=== PATIENT | male | born 1980 | race Caucasian/White ===

== ENCOUNTER 2017-07-20 15:33 | Emergency (ER) | payer OTHER ==
[~2017-07-20] VITALS: Ht 167.6 cm; Wt 65.0 kg
[~2017-07-20 15:33] MED LIST: DARV PO; SULF1TAB47 PO; Z.0.NO CURRENT MEDS
[2017-07-20 15:39] VITALS: BP 143/77; PULSE 77; RESP 16; TEMP 98.7; O2SAT 96
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
== END 2017-07-20 17:29 | disposition home or self-care (01) ==
LOC: PHEFT 15:33
DX: S50.812A Abrasion of left forearm, initial encounter (principal); V49.49XA Driver injured in collision with other motor vehicles in traffic accident, initial encounter; W22.11XA Striking against or struck by driver side automobile airbag, initial encounter; F17.210 Nicotine dependence, cigarettes, uncomplicated
CPT/HCPCS: 99283